=== PATIENT | male | born 1980 | race Two or more races ===

== ENCOUNTER → 2024-06-18 | Outpatient (CLI) | payer BC ==
[2024-06-18 08:08] LABS: Urine Bacteria None Seen /hpf (None Seen)
[2024-06-18 08:18] LABS: Basophils # (auto) 0 10 ^3/uL (0-0.2); Basophils % (auto) 0.5 % (0.0-2.0); Eosinophils # (auto) 0.1 10 ^3/uL (0-0.8); Eosinophils % (auto) 2.2 % (0.0-7.0); Hematocrit 44.9 % (41.0-53.0); Hemoglobin 14.1 g/dL (13.5-17.5); Lymphocytes # (auto) 2.5 10 ^3/uL (0.4-5.4); Lymphocytes % (auto) 51.1 % (10.0-50.0); Mean Corpuscular Hemoglobin 23.5 pg (28.0-32.0); Mean Corpuscular Hgb Conc. 31.4 g/dL (32.0-36.0); Mean Corpuscular Volume 75.1 fL (80.0-100.0); Monocytes # (auto) 0.4 10 ^3/uL (0-1.3); Monocytes % (auto) 8.1 % (0.0-12.0); Neutrophils # (auto) 1.9 10 ^3/uL (1.6-8.6); Neutrophils % (auto) 38.1 % (37.0-80.0); Nucleated Red Blood Cells % 0.1 %; Platelet Count (auto) 196 10^3/uL (140-450); Red Blood Cells 5.99 10^6/uL (4.5-5.90); Red Cell Distribution Width 16.1 % (11.8-14.3); White Blood Cell 4.9 10^3/uL (4.4-10.8)
[2024-06-18 08:38] LABS: Urine Blood Negative /uL (Negative); Urine Clarity Clear (Clear); Urine Color Yellow (Yellow); Urine Mucus FEW (None Seen); Urine Protein, UAD Negative (Negative); Urine Squamous Epithelial Cell None Seen /hpf (<5); Urine Urobilinogen Normal (Negative); Urine WBC 1 /HPF (0-3); Urine pH 5.5 (5.0-9.0)
[2024-06-18 08:46] LABS: Alanine Aminotransferase 37 U/L (7-40); Albumin 4.8 g/dL (3.2-4.8); Alkaline Phosphatase 78 U/L (46-116); Anion Gap 10 (5-15); Aspartate Aminotransferase 19 U/L (13-40); BUN/Creatinine Ratio 13.8 (10.0-20.0); Blood Urea Nitrogen 12 mg/dL (9-23); Calcium 10.1 mg/dL (8.7-10.4); Carbon Dioxide 26 mmol/L (20-31); Chloride 104 mmol/L (98-107); Glucose 94 mg/dL (74-106); Potassium 4.2 mmol/L (3.5-5.1); Sodium 140 mmol/L (136-145)
[2024-06-18 08:47] LABS: Total Protein 7.2 g/dL (5.7-8.2)
[2024-06-18 08:57] LABS: Bilirubin, Total 1.8 mg/dL (0.2-1.0); Cholesterol 238 mg/dL (< 200); HDL Cholesterol 36 mg/dL (40-59); LDL Cholesterol 149 mg/dL (< 100); Triglycerides 310 mg/dL (< 150)
[2024-06-18 11:31] LABS: Uric Acid 7.9 mg/dL (3.7-9.2)
== END | disposition home or self-care (01) ==
LOC: LAB 07:51
PROVIDERS: ATTEND Internal Medicine
DX: I10 Essential (primary) hypertension (principal); E78.5 Hyperlipidemia, unspecified; D64.9 Anemia, unspecified; M10.9 Gout, unspecified; Z00.00 Encounter for general adult medical examination without abnormal findings
CPT/HCPCS: 36415; 80053; 80061; 81001; 83036; 84443; 84550; 85025

== ENCOUNTER → 2024-07-22 | Outpatient (CLI) | payer BC ==
[2024-07-22 11:39] LABS: Albumin 4.5 g/dL (3.2-4.8); Total Protein 6.9 g/dL (5.7-8.2)
[2024-07-22 11:41] LABS: Bilirubin, Direct 0.4 mg/dL (<0.3); Bilirubin, Total 1.4 mg/dL (0.2-1.0)
== END | disposition home or self-care (01) ==
LOC: LAB 10:32
PROVIDERS: ATTEND Internal Medicine
DX: E78.5 Hyperlipidemia, unspecified (principal)
CPT/HCPCS: 36415; 80076

== ENCOUNTER → 2024-09-03 | Outpatient (CLI) | payer BC ==
[2024-09-03 12:37] LABS: Albumin 4.7 g/dL (3.2-4.8); Bilirubin, Total 1.3 mg/dL (0.2-1.0); Total Protein 6.9 g/dL (5.7-8.2)
[2024-09-03 12:52] LABS: Bilirubin, Direct 0.3 mg/dL (<0.3)
== END | disposition home or self-care (01) ==
LOC: LAB 11:39
PROVIDERS: ATTEND Internal Medicine
DX: R74.01 Elevation of levels of liver transaminase levels (principal)
CPT/HCPCS: 36415; 80076

== ENCOUNTER → 2024-12-18 | Outpatient (CLI) | payer BC ==
[2024-12-18 10:33] LABS: Albumin 4.3 g/dL (3.2-4.8); Alkaline Phosphatase 87.0 U/L (46-116); Cholesterol 131.0 mg/dL (< 200); Total Protein 7.1 g/dL (5.7-8.2)
[2024-12-18 10:42] LABS: Mean Corpuscular Hemoglobin 24.3 pg (28.0-32.0); Nucleated Red Blood Cells % 0.1 %
[2024-12-18 10:46] LABS: Hematocrit 39.5 % (41.0-53.0); Hemoglobin 13.1 g/dL (13.5-17.5); Mean Corpuscular Volume 73.5 fL (80.0-100.0)
[2024-12-18 10:48] LABS: Alanine Aminotransferase 57.0 U/L (7-40); Bilirubin, Direct 0.5 mg/dL (<0.3); Bilirubin, Total 1.9 mg/dL (0.2-1.0); HDL Cholesterol 36.0 mg/dL (40-59); Triglycerides 205.0 mg/dL (< 150)
== END | disposition home or self-care (01) ==
LOC: LAB 09:46
PROVIDERS: ATTEND Internal Medicine
DX: E78.5 Hyperlipidemia, unspecified (principal); D56.3 Thalassemia minor
CPT/HCPCS: 36415; 80061; 80076; 85025